=== PATIENT | male | born 1970 | race American Indian/Alaskan Native ===

== ENCOUNTER 2017-04-23 09:17 | Day surgery (SDC) | payer OTHER ==
[~2017-04-23 09:17] MED LIST: ANCEF/STERILE WATER 2 GM/20 ML 2 GM/20 ML SYRINGE IV SCH
[2017-04-23] MEDS ORDERED: ZOFRAN IV PRN (09:22)
[2017-04-23] MEDS ORDERED: DILAUDID IV PRN (09:22)
[2017-04-23] MEDS ORDERED: NACL BACTERIOSTATIC INFILTRATI ONE (09:25)
[2017-04-23] MEDS ORDERED: NACL 0.9% 1000 ML 1,000 ML IV SCH (10:00)
[2017-04-23] MEDS ORDERED: PEPCID PO NR (10:00)
[2017-04-23] MEDS ORDERED: VERSED IV NR (10:00)
[2017-04-23] MEDS ORDERED: MARCAINE 0.25% INFILTRATI ONE ×3 (10:09→10:40)
[2017-04-23] MEDS ORDERED: QUELICIN ONE (10:11)
[2017-04-23] MEDS ORDERED: ZEMURON IV ONE (10:11)
[2017-04-23] MEDS ORDERED: DIPRIVAN 10 MG/ML IV ONE (10:11)
[2017-04-23] MEDS ORDERED: XYLOCAINE MPF 2% ONE (10:11)
[2017-04-23] MEDS ORDERED: SUBLIMAZE ONE (10:11)
--- NOTE | 2017-04-23 10:26 | Anesthesia Day of Surgery ---
Anesthesia Day of Surgery - Day of Surgery Patient Examined: Yes Patient H&P Reviewed: Yes Patient is NPO: Yes
--- NOTE | 2017-04-23 10:26 | Anesthesia Consultation ---
Anesthesia Consult and Med Hx Date of service: 04/23/17 - Airway Anesthetic Teeth Evaluation: Good ROM Head & Neck: Adequate Mental/Hyoid Distance: Adequate Mallampati Class: Class II Intubation Access Assessment: Probably Good - Pulmonary Exam CTA: Yes - Cardiac Exam Cardiac Exam: RRR - Pre-Operative Health Status ASA Pre-Surgery Classification: ASA2 Proposed Anesthetic Plan: General - Pulmonary Hx Smoking: Yes (CIGARETTES 1 PP 3 DAYS FOR 21 YRS) Hx Sleep Apnea: No - Cardiovascular System Hx Hypertension: No - Central Nervous System Hx Seizures: No CVA: No Hx Psychiatric Problems: No - Endocrine Hx Renal Disease: No Hx Non-Insulin Dependent Diabetes: No Hx Thyroid Disease: No - Other Systems Hx Cancer: No
[2017-04-23] MEDS ORDERED: NACL 0.9% IR ONE (10:40)
[2017-04-23] MEDS ORDERED: ZOFRAN ONE (11:35)
[2017-04-23] MEDS ORDERED: TORADOL ONE (11:35)
--- NOTE | 2017-04-23 11:56 | Post Operative Note ---
Pre-op diagnosis: reducible left inguinal hernia Post-op diagnosis: same Findings: Indirect inguinal hernia Procedure: Open left inguinal hernia repair with mesh Anesthesia: GETA Surgeon: KATIA LO Estimated blood loss: minimal Pathology: list (hernia sac) Specimen disposition: to lab Condition: stable Disposition: PACU
--- NOTE | 2017-04-23 11:58 | Discharge Summary ---
Short Stay Discharge Plan Activity: no restrictions Diet: regular Wound: open to air, other (use ice pack off and on today; may shower and wash incision in 2 days) Follow up with: NAA MARC MD [Primary Care Provider] - 7 Days KATIA LO MD [Staff Physician] - 7 Days Prescriptions: oxyCODONE /ACETAMINOPHEN [Percocet 5/325] 1 - 2 tab PO Q6HR PRN #40 tablet PRN Reason: Pain Promethazine [Phenergan TAB] 25 mg PO Q6HR PRN #10 tab PRN Reason: Nausea
[2017-04-23] MEDS ORDERED: DEMEROL ONE (12:00)
--- NOTE | 2017-04-23 14:30 | Operative Report ---
PREOPERATIVE DIAGNOSIS: Reducible left inguinal hernia. POSTOPERATIVE DIAGNOSIS: Reducible left inguinal hernia. PROCEDURE: Open left inguinal hernia repair with mesh. TYPE OF ANESTHESIA: General with local. SURGEON: Sharon Krueger MD PUBLIC WORKS SUPERVISOR: None. ESTIMATED BLOOD LOSS: Minimal to none. INDICATIONS: This is a 47-year-old gentleman who was noted to have a reducible bulge in his left groin and this was noted to be inguinal hernia. He required repair due to the pain and the bulge. FINDINGS: The patient was noted to have indirect inguinal hernia repair. COMPLICATIONS: None. SPECIMENS: PACU. DESCRIPTION OF PROCEDURE: The patient was brought to the operating room, laid supine on the table. After adequate general endotracheal anesthesia was obtained, his left groin area and his abdomen were prepped and draped in the usual fashion. Initially 0.25% Marcaine was infiltrated in field block anesthesia fashion. Next, a curvilinear incision was made from the pubic tubercle towards the anterior iliac spine. Dissection was carried down through the subcutaneous tissue and the external oblique fascia was identified. The external ring was then incised and opened. Next, the cord structures were controlled at the pubic tubercle by blunt dissection and a Asaf drain was placed ____. Next, an indirect hernia sac was identified that was from the cord structures by blunt dissection as well as using some cautery. Once the sac was freed, it was opened and the patient had a piece of omentum stuck in the sac. This was reduced. The indirect hernia sac was then ligated at the neck using 2-0 silk ligature. The sac was amputated and sent as specimen. Next, a keyhole mesh was placed in the floor of the inguinal canal, secured to the Josse's ligament using 3-0 Prolene suture and then secured medially to the thickened edge of the transversalis fashion and brought around the internal ring and then laterally to the Poupart's ligament and brought out laterally and the two ends of the sutures were tied. Next, the Asaf drain was removed. The cord structures were placed back in their anatomic position. The vas was obviously ____. Next, the external oblique fascia was reapproximated using 3-0 Vicryl suture in a running fashion to recreate the external ring. Next, the Lucy's fascia was reapproximated using 3-0 Vicryl suture in running fashion. The subcutaneous tissue was irrigated and then the skin was reapproximated using 4-0 Monocryl in running subcuticular fashion. The wound was dressed with skin glue. The patient tolerated the procedure. There were no immediate complications. All counts were reported as correct. JOB# [id number] MARLEE/NTS
[2017-04-23 14:40] VITALS: BP 148/57
== END 2017-04-23 09:18 | disposition home or self-care (01) ==
LOC: OR 09:17
PROVIDERS: ATTEND Surgery
DX: K40.90 Unilateral inguinal hernia, without obstruction or gangrene, not specified as recurrent (principal); F17.210 Nicotine dependence, cigarettes, uncomplicated
CPT/HCPCS: 49505; 88302; C1781; J0330; J0690; J1170; J1885; J2175; J2250; J2405; J2704; J3010; J7030